=== PATIENT | male | born 1950 | race African-American/Black ===

== ENCOUNTER 2020-03-27 23:29 | Emergency (ER) | payer MEDICARE, OTHER ==
--- NOTE | 2020-03-28 00:18 | ER Document Report ---
ED Medical Screen (RME) - General Chief Complaint: Syncope Stated Complaint: POSS SEIZURE,BLOOD PRESSURE PROBLEM Time Seen by Provider: 03/28/20 00:14 Mode of Arrival: Medic Information source: Patient Notes: 69-year-old male presented to ED for syncopal episode at home. He states about 930 tonight he passed out on his son and he called the ambulance. At the time of the ambulance first time his blood pressure was 67/40 at home. He states he thinks he was very dehydrated because he had a stomach bug for the last 24 hours where he was having nausea vomiting and diarrhea. He does have a history of high blood pressure PTSD reflux insomnia and migraines. He states he has been taking his blood pressure medicine the way it is ordered and he thinks he was just dehydrated. He is alert oriented respirations regular nonlabored speaking in full sentences at this time. He states he does not have a history of diabetes but it does show that in the EMS had a blood sugar of 134. We will get a repeat Accu-Chek and labs and he will be seen by another provider. I have greeted and performed a rapid initial assessment of this patient. A comprehensive ED assessment and evaluation of the patient, analysis of test results and completion of medical decision making process will be conducted by an additional ED providers.
[2020-03-28 00:32] LABS: ABSOLUTE EOSINOPHILS # (AUTO) 0.3 10^3/uL (0.0-0.6); ABSOLUTE LYMPHOCYTES (AUTO) 1.5 10^3/uL (0.5-4.7); ABSOLUTE MONOCYTES (AUTO) 0.6 10^3/uL (0.1-1.4); ABSOLUTE NEUT (AUTO) 4.9 10^3/uL (1.7-8.2); BASOPHILS % (AUTO) 0.3 % (0-2); EOSINOPHILS % (AUTO) 3.5 % (0-6); HEMATOCRIT 37.3 % (37.9-51.0); HEMOGLOBIN 12.6 g/dL (13.5-17.0); LYMPHOCYTES % (AUTO) 20.6 % (13-45); MEAN CORPUSCULAR HEMOGLOBIN 32.1 pg (27.0-33.4); MEAN CORPUSCULAR HGB CONC 33.8 g/dL (32.0-36.0); MEAN CORPUSCULAR VOLUME 95 fl (80-97); MONOCYTES % (AUTO) 8.8 % (3-13); PLATELET COUNT 255 10^3/uL (150-450); RED BLOOD COUNT 3.93 10^6/uL (4.35-5.55); RED CELL DISTRIBUTION WIDTH 13.9 % (11.5-14.0); SEGMENTED NEUTROPHILS % (AUTO) 66.8 % (42-78); TOTAL CELLS COUNTED % (AUTO) 100 %; WHITE BLOOD COUNT 7.3 10^3/uL (4.0-10.5)
[2020-03-28 00:50] LABS: ALBUMIN 3.8 g/dL (3.5-5.0); ALKALINE PHOSPHATASE 83 U/L (38-126); ANION GAP 11 (5-19); ASPARTATE AMINO TRANSFERASE 28 U/L (17-59); BILIRUBIN,DIRECT 0.2 mg/dL (0.0-0.4); BILIRUBIN,TOTAL 0.4 mg/dL (0.2-1.3); BLOOD UREA NITROGEN 28 mg/dL (7-20); CALCIUM 8.9 mg/dL (8.4-10.2); CARBON DIOXIDE 23 mmol/L (22-30); CHLORIDE 104 mmol/L (98-107); CREATINE KINASE 73 U/L (55-170); GLUCOSE 109 mg/dL (75-110); POTASSIUM 3.5 mmol/L (3.6-5.0); TOTAL PROTEIN 6.9 g/dL (6.3-8.2)
[2020-03-28 00:52] LABS: ALCOHOL < 10 mg/dL (NONE DETECTED)
[2020-03-28] MEDS ORDERED: ONDANSETRON HCL INJ/PF 4 MG/2 ML SDV IV ONE (02:17)
[2020-03-28] MEDS ORDERED: NORMAL SALINE 1000 ML 1,000 ML IV ONE (02:17)
--- NOTE | 2020-03-28 02:21 | ER Document Report ---
ED General - General Chief Complaint: Syncope Stated Complaint: POSS SEIZURE,BLOOD PRESSURE PROBLEM Time Seen by Provider: 03/28/20 00:14 Primary Care Provider: MAKENZIE CAT [Primary Care Provider] - 03/30/20 Mode of Arrival: Medic - HPI Context: Time: 0 215 Chief Complaint: [Nausea vomiting diarrhea] [The patient states that some kind of "bug" he has been causing other family members to have nausea, vomiting diarrhea and he believes he was "the last one to get it." Patient states he had a passing out episode when he went from a sitting position to a standing position "too quickly." Patient denies shortness of breath, chest pain, history of DVT, history of cardiac dysrhythmias, history of pulmonary embolism, loss of sense of taste or loss of sense of smell, history of COVID-19 infection, known exposure to COVID-19 positive persons are persons under investigation for COVID-19 infection. History obtained from [patient] Symptoms began:[2 days ago] Onset: [Sudden] Timing: [Sudden] Quality: [Nausea vomiting diarrhea have been intermittent] Intensity: [Waxing and waning intensity] Location: [GI tract] Radiation: [None. Patient denies pain in his abdomen or in any other part of his body] [The pain does not migrate to a new location.] Aggravating factors: [Change in position] Relieving factors: [none] [Denies] SOB [Denies] sweats [Denies] fever [Denies] cough [Denies] calf or leg swelling or pain Past Medical History - General Information source: Patient - Social History Smoking Status: Current Every Day Smoker Chew tobacco use (# tins/day): No Frequency of alcohol use: Social Drug Abuse: Marijuana Family History: Reviewed & Not Pertinent Patient has homicidal ideation: No - Past Medical History Cardiac Medical History: Reports: Hx Hypercholesterolemia Neurological Medical History: Reports: Hx Migraine Endocrine Medical History: Reports: Hx Diabetes Mellitus Type 2 Review of Systems - Review of Systems Notes: Review of systems as below unless otherwise stated in HPI. CONSTITUTIONAL [No] fever, [No] chills. EYES [No] eye pain. ENT [No] URI symptoms, [No] sore throat, [No] ear pain. CARDIOVASCULAR [No] chest pain, [No] palpitations, [No] edema. RESPIRATORY [No] Cough, [No] SOB, [No] wheezing. GASTROINTESTINAL [No] abdominal pain, [positive] nausea, [positive] Diarrhea, [positive] Vomiting, [No] constipation, [No] melena, [No] rectal bleeding. GENITOURINARY [No] dysuria, [No] urinary frequency, [No] hematuria, [No] urinary urgency MUSCULOSKELETAL [No] Back pain. SKIN [No] Rash. NEUROLOGIC [No] Headache, [No] recent seizures, [No] paralysis,[No] parathesias. ENDOCRINE [No] polyuria. HEMO/LYMPATIC [No] easy brusing PSYCHIATRIC [No] depression. Physical Exam - Vital signs Vitals: Temp 97.5 F 03/27/20 23:30 - Notes Notes: CONSTITUTIONAL [Vital signs reviewed, Patient appears comfortable, Alert and oriented X 3, Normal stature.] HEAD [Atraumatic, Normocephalic.] EYES [Eyes are normal to inspection, No discharge from eyes, Extraocular muscles intact, Sclera are normal, Conjunctiva are normal.] ENT [External ears normal to inspection, Nose examination normal, Mouth normal to inspection.] NECK [Normal ROM, No jugular venous distention, No meningeal signs, ] RESPIRATORY CHEST [Chest is nontender, Breath sounds normal, No respiratory distress.] CARDIOVASCULAR [RRR, No murmurs, Normal S1 S2, No rub, No gallop.] ABDOMEN [Abdomen is nontender, No pulsatile masses, No other masses, Bowel sounds normal, No distension, No peritoneal signs, No hernias.] BACK [There is no CVA Tenderness, There is no tenderness to palpation, Normal inspection.] UPPER EXTREMITY [Inspection normal, No cyanosis, No clubbing, No edema, LOWER EXTREMITY [Inspection normal, No cyanosis, No clubbing, No edema, No calf tenderness, NEURO [No focal motor deficits, No focal sensory deficits, Speech normal.] SKIN [Skin is warm, Skin is dry, Skin is normal color.] PSYCHIATRIC [Normal affect. ] Course - Re-evaluation Re-evalutation: 03/28/20 04:07 Patient states he feels "just fine." Results of ED MSE, diagnosis discussed with patient. All questions were answered prior to discharge. Emergency signs and symptoms, reasons to return to the emergency department discussed with patient. - Vital Signs Vital signs: Temp Pulse Resp BP Pulse Ox 97.5 F 79 19 131/108 H 100 03/28/20 00:20 03/28/20 00:47 03/28/20 04:01 03/28/20 04:01 03/28/20 04:01 - Laboratory Result Diagrams: 03/27/20 23:48 03/27/20 23:48 Laboratory results interpreted by me: 03/27/20 03/27/20 23:48 23:48 RBC 3.93 L Hgb 12.6 L Hct 37.3 L Potassium 3.5 L BUN 28 H Creatinine 1.66 H Est GFR ( Amer) 50 L Est GFR (MDRD) Non-Af 42 L - EKG Interpretation by Me Additional EKG results interpreted by me: 03/28/20 02:20 EKG obtained on 03/28/2020 at 00 33 hours was interpreted by this MD. Findings: Normal sinus rhythm, rate 74, normal axis, P R interval appears to be within normal limits, P waves preceding QRS complexes, QRS complex appears narrow, QTC is 475, there are no obvious patterns of ST segment elevation, depression or reciprocal changes seen to suggest acute myocardial ischemia or infarction. There is no prior EKG available for comparison. Impression: Normal sinus rhythm with nonspecific ST segments. Discharge - Discharge Clinical Impression: Viral gastroenteritis, Dehydration Condition: Stable Disposition: HOME, SELF-CARE Instructions: Antinausea Medication ([facility]), Gastroenteritis (adult) ([facility]) Additional Instructions: Return to the Emergency Department without delay if any worse. HOME CARE INSTRUCTIONS & INFORMATION: Thank you for choosing us for your medical needs. We hope you're satisfied with the care you received. After you leave, you must properly care for your problem and, at the same time, observe its progress. Any condition can change. Some illnesses can change rapidly over hours or days. If your condition worsens, return to the Emergency Department or see your physician promptly. ABOUT YOUR X-RAYS AND EKG'S: If you had an EKG or X-rays taken, they have been read by the Emergency Physician. The X-rays and EKG's will also be read by a Radiologist or Case Filler within 24 hours. If discrepancies are noted, you will be notified by telephone. Please be certain the ED has a correct telephone number & address where you can be reached. Also, realize that some fractures or abnormalities do not show up on initial X-rays. If your symptoms continue, see your physician. ABOUT YOUR LABORATORY TEST: If you had laboratory tests, the results have been reviewed by the Emergency Physician. Some test results (for example cultures) may not be available for several days. You will be contacted if any test result shows you need additional treatment. Please be certain the ED has a correct telephone number and address where you can be reached. ABOUT YOUR MEDICATIONS: You will receive instructions on how to take your medicine on the prescription label you receive. Additional information may be provided by the Pharmacy. If you have questions afterwards, call the ED for clarification or further instructions. Some prescribed medications may cause drowsiness. Do not perform tasks such as driving a car or operating machinery without consulting your Pharmacist. If you feel you need a refill of pain medication, your condition will need re-evaluation. Please do not call for a refill of any medication. ABOUT YOUR SIGNATURE: Signature of this document acknowledges to followin. Understanding that you received emergency treatment and that you may be released before al medical problems are known or treated. Please be certain the ED has a correct phone number & address where you can be reached. 2. Acknowledgement that you will arrange for follow-up care as recommended. 3. Authorization for the Emergency Physician to provide information to your follow-up Physician in order to maximize your care. AT ANY TIME, IF YOUR SYMPTOMS CHANGE SIGNIFICANTLY OR WORSEN OR YOU DEVELOP NEW SYMPTOMS, RETURN TO THE EMERGENCY DEPARTMENT IMMEDIATELY FOR RE-EVALUATION. OUR GOAL IS TO PROVIDE EXCELLENT MEDICAL CARE! WE HOPE THAT WE HAVE MET YOUR EXPECTATIONS DURING YOUR EMERGENCY DEPARTMENT VISIT AND THAT YOU FEEL YOU HAVE RECEIVED EXCELLENT CARE! Referrals: [facility] [Primary Care Provider] - 03/30/20
[2020-03-28 03:35] LABS: APPEARANCE,URINE CLEAR; BILIRUBIN,URINE NEGATIVE (NEGATIVE); COLOR,URINE YELLOW; GLUCOSE, URINE NEGATIVE (NEGATIVE); KETONES,URINE NEGATIVE (NEGATIVE); LEUKOCYTE ESTERASE,URINE NEGATIVE (NEGATIVE); NITRITE,URINE NEGATIVE (NEGATIVE); PROTEIN,URINE NEGATIVE (NEGATIVE); URINE SPECIFIC GRAVITY 1.009; UROBILINOGEN,URINE NEGATIVE mg/dL (<2.0)
[2020-03-28 03:40] LABS: URINE AMPHETAMINES SCREEN NEGATIVE; URINE BARBITURATES SCREEN NEGATIVE; URINE BENZODIAZEPINES SCREEN NEGATIVE; URINE COCAINE SCREEN NEGATIVE; URINE METHADONE SCREEN NEGATIVE; URINE PHENCYCLIDINE SCREEN NEGATIVE
[2020-03-28 03:41] LABS: URINE MARIJUANA (THC) SCREEN UNCONFIRMED POSITIVE
[2020-03-28] MEDS ORDERED: ONDANSETRON ODT 4 MG TAB (6 TAB/ER DISP) PO PRN (04:16)
[2020-03-28 04:27] VITALS: BP 131/108
--- NOTE | 2020-03-28 07:21 | EKG REPORT ---
SEVERITY:- NORMAL ECG - SINUS RHYTHM : Confirmed by: Serge Bello MD 28-Mar-2020 07:20:50
== END 2020-03-28 04:26 | disposition home or self-care (01) ==
LOC: ER 23:29
DX: A08.4 Viral intestinal infection, unspecified (principal); E86.0 Dehydration; R55 Syncope and collapse; R11.2 Nausea with vomiting, unspecified; F17.200 Nicotine dependence, unspecified, uncomplicated; F12.10 Cannabis abuse, uncomplicated; E11.9 Type 2 diabetes mellitus without complications
CPT/HCPCS: 93005; 99284; 96360; 96361; 36415; 82962; 80307 ×2; 82550; 83735; 85025; 80053; 81001; 84484; 93010; J7030